=== PATIENT | male | born 2000 | race Hispanic/Latino ===

== ENCOUNTER 2022-01-08 18:32 | Emergency (ER) | payer BC ==
[2022-01-08] MEDS ORDERED: TETANUS & DIPHTHERIA TOX,ADULT 0.5 ML VIAL ONE (20:11)
--- NOTE | 2022-01-08 20:19 | RAD REPORT ---
EXAM DESCRIPTION: CT - CTHCSPWOC - 01/08/2022 8:03 pm CLINICAL HISTORY: Trauma, head and neck injury. head injury, neck pain COMPARISON: <Comparisons> TECHNIQUE: Axial 5 mm thick images of the head were obtained. Axial 2 mm thick images of the cervical spine were obtained with sagittal and coronal reconstruction images generated and reviewed. All CT scans are performed using dose optimization technique as appropriate and may include automated exposure control or mA/KV adjustment according to patient size. FINDINGS: CT HEAD WITHOUT CONTRAST: No acute hemorrhage, hydrocephalus or extra-axial collection is identified.No areas of brain edema or midline shift. The paranasal sinuses and mastoids are clear.The calvarium is intact. CT CERVICAL SPINE WITHOUT CONTRAST: No fracture or subluxation.No prevertebral soft tissues swelling is identified. IMPRESSION: No acute intracranial or cervical spine findings.
--- NOTE | 2022-01-08 21:36 | EDPHYS ---
Physician Documentation [facility] Name: Umberto Steele Age: 21 yrs Sex: Male : 2000 Arrival Date: 01/08/2022 Time: 18:35 Bed 15 Private MD: ED Physician Sriram Sanches HPI: 01/08 19:21 This 21 yrs old Male presents to ER via Ambulatory with complaints of Fall jmm Injury, Laceration To Forehead, Laceration To Nose. 19:21 Details of fall: The patient fell from an upright position. Onset: The symptoms/episode jmm began/occurred acutely, just prior to arrival. Associated injuries: The patient sustained injury to the head. Patient states that [place] [employer] [place]. Patient also complains of neck pain and upper back pain after the injury. Denies loss of conscious. Patient is unsure on tetanus immunization status. Historical: - Allergies: 19:25 No Known Allergies; jb4 - Home Meds: 19:25 None [Active]; jb4 - PMHx: 19:25 None; jb4 - PSHx: 19:25 None; jb4 - Immunization history: Last tetanus immunization: unknown. - Social history:: Smoking status: Patient denies any tobacco usage or history of. Patient uses alcohol, only on a social basis. street drugs, marijuana. ROS: 19:21 Constitutional: Negative for fever, chills, and weight loss, Cardiovascular: Negative jmm for chest pain, palpitations, and edema, Respiratory: Negative for shortness of breath, cough, wheezing, and pleuritic chest pain. 19:21 Skin: Positive for laceration(s). 19:21 All other systems are negative. Exam: 19:21 Constitutional: This is a well developed, well nourished patient who is awake, alert, jmm and in no acute distress. 19:21 ENT: Moist Mucus Membranes 19:21 Chest/axilla: Normal chest wall appearance and motion. Cardiovascular: Regular rate and rhythm. No edema appreciated Respiratory: Normal respirations, no respiratory distress appreciated Abdomen/GI: Non distended, soft Back: Normal ROM Skin: General appearance color normal MS/ Extremity: Moves all extremities, no obvious deformities appreciated, no edema noted to the lower extremities Neuro: Awake and alert Psych: Behavior is normal, Mood is normal, Patient is cooperative and pleasant 19:21 Head/face: Noted is a laceration(s). 19:21 Neck: C-spine: vertebral tenderness, that is mild, diffusely, ROM/movement: pain, that is mild, with rotation to the left, with rotation to the right. Vital Signs: 19:21 BP 126 / 97; Pulse 97; Resp 16; Temp 99.5(TE); Pulse Ox 98% on R/A; Weight 99.79 kg jb4 (R); Height 5 ft. 5 in. (165.10 cm) (R); Pain 10/10; 19:41 BP 125 / 72; Pulse 89; Resp 16; Temp 98.8; Pulse Ox 100% on R/A; hillary 21:51 BP 126 / 57; Pulse 85; Resp 18; Temp 98.3; Pulse Ox 100% on R/A; Pain 0/10; hillary 19:21 Body Mass Index 36.61 (99.79 kg, 165.10 cm) jb4 Jacques Coma Score: 19:21 Eye Response: spontaneous(4). Verbal Response: oriented(5). Motor Response: obeys jb4 commands(6). Total: 15. Trauma Score (Adult): 19:21 Eye Response: spontaneous(1); Verbal Response: oriented(1); Motor Response: obeys jb4 commands(2); Systolic BP: > 89 mm Hg(4); Respiratory Rate: 10 to 29 per min(4); Clayton Score: 15; Trauma Score: 12 Laceration: 21:34 Wound Repair of 2cm ( 0.8in ) subcutaneous laceration to scalp. Distal jmm neuro/vascular/tendon intact. Anesthesia: Local anesthetic administered with 2 mls of 1% lidocaine w/ Epi. Wound prep: Simple cleansing with hibiclenz by me. Skin closed with 4 1-0 Ash using staple gun. Patient tolerated well. MDM: 19:21 Patient medically screened. sina 21:35 Data reviewed: vital signs, nurses notes. Counseling: I had a detailed discussion with sina the patient and/or guardian regarding: the historical points, exam findings, and any diagnostic results supporting the discharge/admit diagnosis, radiology results, the need for outpatient follow up, to return to the emergency department if symptoms worsen or persist or if there are any questions or concerns that arise at home. ED course: Patient given head injury return precautions. 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 Exp: hillary 10/21/2023. Lot #: [id number]. } Route: IM; Site: right deltoid; 20:32 Follow up: Response: No adverse reaction hillary Disposition Summary: 01/08/22 21:36 Discharge Ordered Location: Home [facility] Condition: Stable [facility] Diagnosis - Scalp laceration [facility] Followup: [facility] - With: Private Physician - When: 1 week - Reason: Recheck today's complaints, Continuance of care, Staple/Suture removal, Re-evaluation by your physician Discharge Instructions: - Discharge Summary Sheet [facility] - Head Injury, Adult jm - Laceration Care, Adult [facility] Forms: - Medication Reconciliation Form [facility] - Thank You Letter [facility] - Antibiotic Education [facility] - Prescription Opioid Use [facility] Prescriptions: - orphenadrine citrate 100 mg Oral Tablet Sustained Release - take 1 tablet by ORAL route 2 times per day As needed; 20 tablet; Refills: 0, [facility] Product Selection Permitted Addendum: 01/11/2022 02:06 Co-signature as Attending Physician, Sriram Sanches MD. [facility] Signatures: Dispatcher [employer] EDMS Avinash Ng PA PA jmm Bryson, James, RN RN jb4 Sriram Sanches MD MD [id number] Becca Gregory RN RN hillary
--- NOTE | 2022-01-08 21:36 | ER ---
Nurse's Notes [facility] Name: Umberto Steele Age: 21 yrs Sex: Male : 2000 Arrival Date: 01/08/2022 Time: 18:35 Bed 15 Private MD: Diagnosis: Scalp laceration Presentation: 01/08 19:21 Chief complaint: Patient states: I was pushing an object. It got caught and I hit my jb4 head on it. I was able to stop the bleeding, now it just hurts, my neck and back both hurt. Care prior to arrival: None. Mechanism of Injury: Hit head on stationary object. Trauma event details: Injury occurred in the [facility]. 19:21 Method Of Arrival: Ambulatory jb4 19:21 Acuity: NIGHAT 2 jb4 19:25 Coronavirus screen: At this time, the client does not indicate any symptoms associated jb4 with coronavirus-19. Ebola Screen: No symptoms or risks identified at this time. Initial Sepsis Screen: Does the patient meet any 2 criteria? No. Patient's initial sepsis screen is negative. Does the patient have a suspected source of infection? No. Patient's initial sepsis screen is negative. Risk Assessment: Do you want to hurt yourself or someone else? Patient reports no desire to harm self or others. Onset of symptoms was January 08, 2022. Transition of care: patient was not received from another setting of care. Trauma Activation: Physician: ED Physician; Name: Berenice; Notified At: 19:22; Arrived At: 19:22 Physician: General Surgeon; Name: ; Notified At: 19:22; Arrived At: Physician: Radiology; Name: ; Notified At: 19:22; Arrived At: Physician: Respiratory; Name: ; Notified At: 19:22; Arrived At: Physician: Lab; Name: ; Notified At: 19:22; Arrived At: Historical: - Allergies: 19:25 No Known Allergies; jb4 - Home Meds: 19:25 None [Active]; jb4 - PMHx: 19:25 None; jb4 - PSHx: 19:25 None; jb4 - Immunization history: Last tetanus immunization: unknown. - Social history:: Smoking status: Patient denies any tobacco usage or history of. Patient uses alcohol, only on a social basis. street drugs, marijuana. Screenin:21 Abuse screen: Denies threats or abuse. Nutritional screening: No deficits noted. jb4 Tuberculosis screening: No symptoms or risk factors identified. Fall risk None identified. 19:43 Fall Risk None identified. hillary Primary Survey: 19:21 NO uncontrolled hemorrhage observed. A: The client is awake and alert. The airway is jb4 patent. Breathing/Chest: Spontaneous respiratory effort, equal unlabored respirations, breath sounds clear bilaterally, regular pattern, symmetrical chest rise and fall. Circulation: No external hemorrhage present. Regular and strong central pulse, skin warm/dry/normal color. Disability Pupils are equal, round, reactive to light and accommodation. Exposure/Environment: All clothing and personal items were removed. Forensic evidence collection is not deemed to be indicated at this time. Items placed in patient belonging bag. A warming method has been applied: A warm blanket has been provided to the patient. 19:42 Reassessment Breathing: Spontaneous respiratory effort, equal unlabored respirations, hillary breath sounds clear bilaterally, regular pattern with symmetrical chest rise and fall. Assessment: 19:21 General: Appears in no apparent distress. comfortable, Behavior is calm, cooperative, jb4 appropriate for age. Pain: Complains of pain in forehead, back and neck Pain does not radiate. Pain currently is 10 out of 10 on a pain scale. 19:36 Reassessment: The pt was brought to room #15, via wc and a cc in place. A "trauma hillary alert" was paged overhead. He was not placed on the monitor. He is accompanied by family/friend. He appears in NAD. 19:43 Reassessment: The pt states that he was skating and fell. He has abrasions to his left hillary knee and a lac to his scalp, that is not bleeding. His mother is at bedside. He denies any LOC. Vital Signs: 19:21 BP 126 / 97; Pulse 97; Resp 16; Temp 99.5(TE); Pulse Ox 98% on R/A; Weight 99.79 kg jb4 (R); Height 5 ft. 5 in. (165.10 cm) (R); Pain 10/10; 19:41 BP 125 / 72; Pulse 89; Resp 16; Temp 98.8; Pulse Ox 100% on R/A; hillary 21:51 BP 126 / 57; Pulse 85; Resp 18; Temp 98.3; Pulse Ox 100% on R/A; Pain 0/10; hillary 19:21 Body Mass Index 36.61 (99.79 kg, 165.10 cm) jb4 Madill Coma Score: 19:21 Eye Response: spontaneous(4). Verbal Response: oriented(5). Motor Response: obeys jb4 commands(6). Total: 15. Trauma Score (Adult): 19:21 Eye Response: spontaneous(1); Verbal Response: oriented(1); Motor Response: obeys jb4 commands(2); Systolic BP: > 89 mm Hg(4); Respiratory Rate: 10 to 29 per min(4); Jacques Score: 15; Trauma Score: 12 ED Course: 18:35 Patient arrived in ED. mr 19:12 Avinash Ng PA is PHCP. jmm 19:12 Sriram Sanches MD is Attending Physician. jmm 19:21 Patient has correct armband on for positive identification. jb4 19:21 Patient maintains SpO2 saturation greater than 95% on room air. Thermoregulation: warm jb4 blanket given to patient. 19:22 Triage completed. jb4 19:25 Arm band placed on right wrist. jb4 19:36 Becca Gregory, RN is Primary Nurse. hillary 19:42 No provider procedures requiring assistance completed. hillary 20:05 CT Head C Spine In Process Unspecified. EDMS 21:52 Patient did not have IV access during this emergency room visit. 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 Exp: hillary 10/21/2023. Lot #: [id number]. } Route: IM; Site: right deltoid; 20:32 Follow up: Response: No adverse reaction hillary Medication: 19:43 VIS not applicable for this client. hillary Output: 21:51 Urine: 500ml (Voided); Total: 500ml. hillary Outcome: 19:43 Condition: stable hillary 21:36 Discharge ordered by . jmm 21:51 Patient's length of stay was not longer than 2 hours. hillary 21:52 Discharged to home ambulatory, with family. hillary 21:52 Discharge instructions given to patient, Instructed on discharge instructions, follow up and referral plans. medication usage, Demonstrated understanding of instructions, follow-up care, medications. 21:52 Patient left the ED. hillary Signatures: Dispatcher [employer] EDMS Avinash Ng PA PA jmm Rivera, Mary mr CamiloJose RN RN jb4 Becca Gregory RN RN bo Corrections: (The following items were deleted from the chart) 19:35 19:21 Acuity: NIGHAT 3 jb4 jb4
[2022-01-08 22:33] VITALS: O2SAT 100
[2022-01-08 22:34] VITALS: BP 126/57; TEMP 98.3
== END 2022-01-08 21:52 | disposition home or self-care (01) ==
LOC: ER 18:32
PROC: 0JQ00ZZ Repair Scalp Subcutaneous Tissue and Fascia, Open Approach (ICD-10-PCS; principal; 2022-01-08)
DX: S01.01XA Laceration without foreign body of scalp, initial encounter (principal); W18.30XA Fall on same level, unspecified, initial encounter; Z23 Encounter for immunization
CPT/HCPCS: 70450; 72125; 90471; 90714; 99284